=== PATIENT | male | born 1995 | race African-American/Black ===

== ENCOUNTER 2022-10-17 08:20 | Emergency (ER) | payer MEDICAID ==
[~2022-10-17] VITALS: Ht 172.7 cm; Wt 91.0 kg
[2022-10-17] MEDS ORDERED: ONDANSETRON HCL 4MG/2ML INJ IV STA (10:32)
[2022-10-17] MEDS ORDERED: KETOROLAC 30MG/ML VIAL IV STA (10:32)
[2022-10-17] MEDS ORDERED: SODIUM CHLORIDE 0.9% 1,000 ML IV ONE (10:45)
[2022-10-17 10:52] LABS: BASOPHILS % 1.1 % (0.0-2.0); EOSINOPHILS % 0.8 % (0.0-5.0); HEMATOCRIT. 47.1 % (42.0-52.0); HEMOGLOBIN. 15.8 g/dL (14.0-18.0); LYMPHOCYTES % 23.7 % (20.0-50.0); MEAN CORPUSCULAR HEMOGLOBIN 27.6 pg (28.0-32.0); MEAN CORPUSCULAR VOLUME 82.1 fL (80.0-94.0); MEAN PLATELET VOLUME 9.1 fl (7.4-10.4); MONOCYTES % 9.5 % (2.0-8.0); NEUTROPHILS % 64.9 % (40.0-76.0); PLATELET 197 x1000/uL (130-400); RED BLOOD CELL COUNT 5.74 mill/uL (4.7-6.1); RED CELL DISTRIBUTION WIDTH 13.8 % (11.6-14.6)
[2022-10-17 10:59] LABS: CLARITY URINE CLEAR (CLEAR); COLOR URINE DARK YELLOW (YELLOW); KETONES URINE TRACE (NEGATIVE); LEUKOCYTE ESTERASE URINE NEGATIVE (NEGATIVE); NITRITE URINE NEGATIVE (NEGATIVE); OCCULT BLOOD URINE NEGATIVE (NEGATIVE); PH URINE 6.5 (4.5-8.0); PROTEIN URINE 1+ (NEGATIVE); SPECIFIC GRAVITY URINE 1.032 (1.005-1.030)
[2022-10-17 10:59] LABS: CHLORIDE 104 mEq/L (98-107)
[2022-10-17] MEDS ORDERED: ACET-2708 PO ×3 (11:46→13:30)
[2022-10-17] MEDS ORDERED: ONDA4TAB50 PO ×3 (11:46→13:30)
[2022-10-17 12:40] VITALS: BP 126/75
== END 2022-10-17 12:42 | disposition home or self-care (01) ==
LOC: ER 08:20
DX: K29.20 Alcoholic gastritis without bleeding (principal); I10 Essential (primary) hypertension; E78.00 Pure hypercholesterolemia, unspecified; F10.10 Alcohol abuse, uncomplicated; Y90.9 Presence of alcohol in blood, level not specified; Z86.16 Personal history of COVID-19
CPT/HCPCS: 36415; 80053; 81003; 83690; 85025; 96361; 96374; 96375; 99284; J1885; J2405; J7030; Z7610

== ENCOUNTER 2024-07-23 01:55 | Emergency (ER) | payer BC, MEDICAID ==
[~2024-07-23] VITALS: Ht 170.2 cm; Wt 81.0 kg
[~2024-07-23 01:55] MED LIST: ACET-2708 PO; ONDA4TAB50 PO
[2024-07-23 02:00] VITALS: TEMP 97.7; O2SAT 98
[2024-07-23] MEDS ORDERED: MAGNESIUM/ALUMINUM HYDROXIDE/SIMETHICONE 30ML UDC PO STA (02:14)
[2024-07-23] MEDS ORDERED: KETOROLAC 15MG/ML VIAL IV ONE (02:15)
[2024-07-23 02:53] LABS: BASOPHILS % 0.7 % (0.0-2.0); EOSINOPHILS % 0.1 % (0.0-5.0); HEMATOCRIT. 46.9 % (42.0-52.0); HEMOGLOBIN. 15.1 g/dL (14.0-18.0); LYMPHOCYTES % 7.6 % (20.0-50.0); MEAN CORPUSCULAR HEMOGLOBIN 27.6 pg (28.0-32.0); MEAN CORPUSCULAR HGB CONC 32.2 g/dL (31.0-37.0); MEAN CORPUSCULAR VOLUME 85.8 fL (80.0-94.0); MEAN PLATELET VOLUME 9.9 fl (7.4-10.4); MONOCYTES % 3.4 % (2.0-8.0); NEUTROPHILS % 88.2 % (40.0-76.0); PLATELET 209 x1000/uL (130-400); RED BLOOD CELL COUNT 5.46 mill/uL (4.7-6.1); RED CELL DISTRIBUTION WIDTH 13.9 % (11.6-14.6); WHITE BLOOD COUNT 8.3 x1000/uL (4.5-11.0)
[2024-07-23 03:01] LABS: CARBON DIOXIDE 21 mEq/L (21-32); CHLORIDE 108 mEq/L (98-107); POTASSIUM 4.5 mEq/L (3.5-5.1); SODIUM 145 mEq/L (136-145)
[2024-07-23 03:02] LABS: CALCIUM 10.7 mg/dL (8.7-10.4)
[2024-07-23 03:06] LABS: CREATININE 1.2 mg/dL (0.6-1.3); INR 0.9; PROTHROMBIN TIME 10.6 sec (9.6-11.0)
[2024-07-23 03:07] LABS: GLUCOSE 214 mg/dL (70-105); UREA NITROGEN BLOOD 12 mg/dL (9-23)
[2024-07-23 03:08] LABS: ALANINE AMINOTRANSFERASE 21 IU/L (10-49); ALBUMIN 5.5 g/dL (3.2-4.8); ASPARTATE AMINOTRANSFERASE 22 IU/L (<34)
[2024-07-23 03:09] LABS: BILIRUBIN DIRECT 0.2 mg/dL (<=3.0); BILIRUBIN TOTAL 0.7 mg/dL (0.1-1.0)
[2024-07-23 03:16] VITALS: BP 167/89; PULSE 64; RESP 16
[2024-07-23] MEDS: SODIUM CHLORIDE 0.9% 1,000 ML IV ONE (03:16)
[2024-07-23] MEDS: MAGNESIUM/ALUMINUM HYDROXIDE/SIMETHICONE 30ML UDC PO NR (03:16)
[2024-07-23] MEDS: KETOROLAC 15MG/ML VIAL IV NR (03:16)
[2024-07-23 03:37] LABS: ETHANOL BLOOD < 10 mg/dL (<10)
[2024-07-23] MEDS ORDERED: NAPR-1164 MT (04:28)
[2024-07-23] MEDS ORDERED: ONDA4TAB50 MT (04:28)
[2024-07-23] MEDS ORDERED: ACET-2708 MT (04:39)
[2024-07-23] MEDS ORDERED: PROT40 MT (04:39)
[2024-07-23] MEDS ORDERED: MAG355OR21 MT (04:39)
== END 2024-07-23 06:24 | disposition home or self-care (01) ==
LOC: ER 01:55
DX: B34.9 Viral infection, unspecified (principal); J45.909 Unspecified asthma, uncomplicated; E78.00 Pure hypercholesterolemia, unspecified; I10 Essential (primary) hypertension; F19.90 Other psychoactive substance use, unspecified, uncomplicated; Z79.899 Other long term (current) drug therapy
CPT/HCPCS: 80076; 80048; 80320; 82962; 83690; 85025; 85610; 36415; 71045; 96361; 96374; 99284; J1885; J7030; 80305; 81003; G0480